=== PATIENT | male | born 1985 | race Two or more races ===

== ENCOUNTER 2022-11-13 19:23 | Emergency (ER) | payer MEDICAID ==
[~2022-11-13] VITALS: Ht 180.3 cm; Wt 89.3 kg
[2022-11-13 19:31] VITALS: BP 131/80
[2022-11-13 20:28] LABS: HEMATOCRIT. 42.8 % (42.0-52.0); HEMOGLOBIN. 14.7 g/dL (14.0-18.0); LYMPHOCYTES % 41.9 % (20.0-50.0); MEAN CORPUSCULAR HEMOGLOBIN 33.8 pg (28.0-32.0); MEAN CORPUSCULAR VOLUME 98.6 fL (80.0-94.0); MEAN PLATELET VOLUME 7.1 fl (7.4-10.4); MONOCYTES % 11.7 % (2.0-8.0); NEUTROPHILS % 44.4 % (40.0-76.0); PLATELET 246 x1000/uL (130-400); RED BLOOD CELL COUNT 4.34 mill/uL (4.7-6.1); RED CELL DISTRIBUTION WIDTH 13.5 % (11.6-14.6)
[2022-11-13] MEDS ORDERED: CYCLOBENZAPRINE 10MG TABLET PO NR (20:30)
[2022-11-13] MEDS ORDERED: KETOROLAC 60MG/2ML VIAL IM NR (20:30)
[2022-11-13 20:35] LABS: CHLORIDE 101 mEq/L (98-107)
[2022-11-14] MEDS ORDERED: IBUP-2030 MT (00:24)
[2022-11-14] MEDS ORDERED: CYCL10TA21 MT (00:24)
== END 2022-11-14 00:43 | disposition home or self-care (01) ==
LOC: ER 19:23
DX: R74.01 Elevation of levels of liver transaminase levels (principal)
CPT/HCPCS: 36415; 71045; 72100; 80053; 83880; 84484; 85025; 93005; 99285

== ENCOUNTER 2025-06-03 17:13 | Emergency (ER) | payer MEDICAID ==
[~2025-06-03] VITALS: Ht 175.3 cm; Wt 86.0 kg
[~2025-06-03 17:13] MED LIST: CYCL10TA21 MT; IBUP-2030 MT
[2025-06-03 17:15] VITALS: PULSE 105; RESP 16; O2SAT 97
[2025-06-03 17:35] VITALS: BP 121/73; TEMP 36.8; O2SAT 98
[2025-06-03] MEDS: IBUPROFEN 800MG TABLET PO ONE (21:21)
[2025-06-03] MEDS ORDERED: IBUP-2030 MT (21:22)
== END 2025-06-03 21:42 | disposition home or self-care (01) ==
LOC: ER 17:13
DX: M25.461 Effusion, right knee (principal); F19.90 Other psychoactive substance use, unspecified, uncomplicated
CPT/HCPCS: 29505; 73560; 99283